=== PATIENT | male | born 1995 | race Caucasian/White ===

== ENCOUNTER 2020-03-08 15:11 | Emergency (ER) | payer SELFPAY ==
--- NOTE | ~2020-03-08 | CT_ITS ---
EXAMINATION: CT abdomen pelvis w con DATE: 03/08/2020 16:31 INDICATION: Abdominal pain and vomiting TECHNIQUE: Computed tomography (CT) of the abdomen and pelvis was performed with 100 cc Omnipaque 350 intravenous contrast. Automated exposure control and iterative reconstruction technique were employe d. Exam dose: 668.44 mGy-cm total exam DLP. COMPARISON: None. FINDINGS: The lung bases are clear. Normal heart size. No pericardial or pleural effusion. Probable small cyst or perhaps focal fatty infiltration is noted in the medial hepatic lobe near the fissure for the ligamentum teres. The liver otherwise is unremarkable. The gallbladder is present. No bile duct or pancreatic duct dilatation. Splenic size is normal. Normal morphology of the adrenal glands. 6 mm upper pole right renal cyst. 6 mm mid right renal cyst. Approximately 5.4 x 7 mm lower pole righ t renal cyst. The kidneys are otherwise unremarkable. No urinary tract calculus or hydroureteronephro sis. The urinary bladder is unremarkable. Prostate calcification is noted. There is normal caliber of the abdominal aorta. No intraperitoneal or retroperitoneal or pelvic mass lesion or adenopathy or ascites. Normal appendix. No bowel obstruction, bowel wall thickening, pneumatosis or intraperitoneal free air . Included skeletal structures are unremarkable. IMPRESSION: Subcentimeter right renal cysts Normal appendix Reviewed, dictated and finalized at [facility]. Reviewed, dictated and finalized at [facility]. 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
--- NOTE | ~2020-03-08 | XR_ITS ---
XR chest 2V DATE: 03/08/2020 16:38 INDICATION: Epigastric pain. Acid reflux. TECHNIQUE: PA and lateral views COMPARISON: None FINDINGS: No pulmonary infiltrate or consolidation, pleural effusion or pulmonary vascular congestion or pneumothorax. Normal heart size. No hilar or mediastinal enlargement. IMPRESSION: Negative chest Reviewed, dictated and finalized at [facility]. 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
--- NOTE | 2020-03-08 15:16 | ED.ABDPAIN ---
HPI - Abdominal Pain General Chief Complaint: Abdominal Pain Stated Complaint: GI issues Time Seen by Provider: 03/08/20 15:16 Source: patient Mode of arrival: ambulatory Limitations: no limitations History of Present Illness HPI narrative: Patient is a 24-year-old male who presents for evaluation of epigastric abdominal pain, chest pain. Patient states he has had 1 month of intermittent symptoms, which he attributes to acid reflux. He reports a burning-like sensation in his chest, states he has been taking up to 1 bottle of Pepto-Bismol daily over the past 5 days. He reports he has been nauseated and he also reports that his stools have been very dark in color he is concerned that he is bleeding. He denies any fever, chills, current chest pain or current abdominal pain. He does not have a primary care physician or dining room coordinator. He denies diarrhea or constipation. He denies weight loss or family history of bowel disease. Related Data Allergies Allergy/AdvReac Type Severity Reaction Status Date / Time No Known Allergies Allergy Verified 03/08/20 15:23 Review of Systems Review of Systems: Narrative: CONSTITUTIONAL: Denies fever, chills, or sweats. ENT: Denies rhinorrhea, congestion, sore throat, or otalgia. CARDIOVASCULAR: Denies current chest pain, palpitations, or edema. RESPIRATORY: Denies cough or dyspnea. GASTROINTESTINAL: Denies current abdominal pain, nausea, vomiting, or diarrhea. Reports dark stools. GENITOURINARY: Denies dysuria or hematuria. SKIN: Denies rash or itching. MUSCULOSKELETAL: Denies back pain, joint pain, or myalgia. NEUROLOGIC: Denies headache, numbness, or weakness. [facility] Past Medical History Medical History Closed arm fracture Surgical History Surgical History (Updated 03/08/20 @ 15:41 by Faith Anne MD) No pertinent past surgical history Social History Social History (Updated 03/08/20 @ 15:42 by Faith Anne MD) Smoking status: Current some day smoker Alcohol intake: current Alcohol use details: rare Substance use: current Substance use type: marijuana Gender identity (if verbalized by the patient): Male Exam Narrative: Exam Narrative: GENERAL: Awake, alert, conversant HEAD: Normocephalic, atraumatic. EYES: PERRLA and EOMI. ENT: Nares clear, no rhinorrhea or epistaxis. Mucous membranes moist. NECK: Supple. CHEST: No respiratory distress, breathing even and non labored HEART: Regular rate, sinus rhythm ABDOMEN:Non distended, non tender, no epigastric tenderness EXTREMITIES: Normal range of motion. No edema. SKIN: Warm, dry, no rash. NEURO:No focal deficits. Alert and oriented x3 Course Vital Signs Vital signs: Vital Signs Temperature 36.7 C 03/08/20 15:20 Pulse Rate 96 03/08/20 15:20 Respiratory Rate 18 03/08/20 15:20 Blood Pressure 130/69 03/08/20 15:20 Pulse Oximetry 100 03/08/20 15:20 Temperature 36.7 C 03/08/20 15:20 Pulse Rate 96 03/08/20 15:20 Respiratory Rate 18 03/08/20 15:20 Blood Pressure 130/69 03/08/20 15:20 Pulse Oximetry 100 03/08/20 15:20 MDM - Abdominal Pain MDM Narrative Medical decision making narrative: Patient presenting for evaluation of acute on chronically worsening abdominal pain. At the time of assessment, patient is currently without any pain. Patient's abdomen is soft without significant pain or signs of surgical abdomen on serial exams. Lab and imaging evaluations are reviewed and patient is felt to be a reasonable candidate for outpatient management. I alerted the patient as to his renal cyst, and I feel like his symptoms are probably most attributed to possible peptic ulcer disease versus gastritis. His laboratory results are reassuring. No significant leukocytosis. No anemia. No sign of appendicitis clinically or based on imaging. There is nothing to suggest severe GI hemorrhage. No anginal type symptoms. Patient
[2020-03-08 15:20] VITALS: BP 130/69; PULSE 96; RESP 18; TEMP 36.7; O2SAT 100
--- NOTE | 2020-03-08 15:37 | ECG_ITS ---
Measurements Intervals [place] Rate: 86 P: 64 WV: 161 QRS: 39 QRSD: 92 T: 55 QT: 339 QTc: 407 Interpretive Statements SINUS RHYTHM WITH SINUS ARRHYTHMIA NORMAL ECG Electronically Signed On 03-08-2020 16:05:41 ENGINEERING ILLUSTRATOR by Natanael Johnson D.O.
[2020-03-08 15:46] LABS: Basophils Absolute Auto 0.1 K/mm3 (0.0-0.1); Basophils Percent Auto 0.6 % (0.2-1.2); Eosinophils Absolute Auto 0.4 K/mm3 (0-0.3); Eosinophils Percent Auto 3.4 % (0-4.4); Hematocrit 46.4 % (42.0-52.0); Hemoglobin 15.8 g/dL (14.0-18.0); Immature Granulocyte Absolute 0.14 K/mm3 (0.00-0.031); Immature Granulocyte Percent A 1.3 % (0-0.5); Lymphocytes Absolute Auto 2.12 K/mm3 (0.9-3.2); Mean Corpuscular HGB Conc 34.1 g/dl (32-36); Mean Platelet Volume 9.6 fl (7.4-10.4); Monocytes Absolute Auto 0.7 K/mm3 (0.1-0.6); Monocytes Percent Auto 6.2 % (2.6-8.5); Neutrophils Absolute Auto 7.2 K/mm3 (1.3-6.7); Neutrophils Percent Auto 68.5 % (45.5-73.1); Platelet Count Result 311 k/mm3 (150-375); Red Cell Distribution Width 12.5 % (11.5-14.5); White Blood Count 10.6 K/mm3 (4.5-10.0)
[2020-03-08] MEDS: FAMOTIDINE 20 MG TABLET PO (15:49)
[2020-03-08 15:56] LABS: Add Urine Microscopic? YES; Amorphous Sediment Urine Few; Appearance Urine Cloudy (Clear); Bilirubin Urine Negative (Negative); Blood Urine Negative (Negative); Color Urine Yellow (Yellow); Glucose Urine UA Negative (Negative); Ketones Urine Negative (Negative); Leukocyte Esterase Ur Negative LEU/UL (Negative); Nitrate Urine Negative (Negative); Protein Urine 1+ mg/dL (Negative); RBC Urine 0-2 /hpf (0-2); Specific Grav Ur 1.017 (1.001-1.035); Squamous Epithelial Cell Urine Few /hpf (Few); Urobilinogen Urine Negative mg/dL (<2.0); WBC Urine 0-3 /hpf
[2020-03-08 15:59] LABS: Alanine Aminotransferase 29 U/L (4-50); Albumin Level 4.1 g/dL (3.5-5.1); Alkaline Phosphatase 87 U/L (38-126); Anion Gap 9 mmol/L (8-16); Aspartate Amino Transferase 26 U/L (17-59); Bilirubin,Total 0.5 mg/dL (0.2-1.3); Blood Urea Nitrogen 15 mg/dL (9-20); Calcium 9.2 mg/dL (8.4-10.2); Carbon Dioxide 29 mmol/L (22-30); Chloride 101 mmol/L (98-107); Estimated CRCL calculation 114 ml/min; Estimated Glomerular Filt Rate > 60; Glucose 111 mg/dL (75-110); Lipase 58 U/L (23-300); Potassium 4.2 mmol/L (3.4-5.0); Sodium 139 mmol/L (137-145)
[2020-03-08 16:05] LABS: Prothrombin Time 13.7 Seconds (11.1-14.7)
[2020-03-08 16:06] LABS: Partial Thromboplastin Time 27.5 SECONDS (22.3-36.8)
[2020-03-08 16:10] LABS: Troponin I < 0.012 ng/mL (0.000-0.034)
== END 2020-03-08 17:28 | disposition home or self-care (01) ==
PROVIDERS: Emergency Provider Emergency Medicine
DX: R10.13 Epigastric pain (principal); N28.1 Cyst of kidney, acquired
CPT/HCPCS: 36415; 71046; 74177; 80053; 81001; 83690; 84484; 85025; 85610; 85730; 86850; 86900; 86901; 93005; 99283; A9270; Q9967